=== PATIENT | female | born 1950 | race Caucasian/White ===

== ENCOUNTER 2017-09-02 19:49 | Emergency (ER) | payer OTHER ==
[~2017-09-02] VITALS: Ht 160 cm; Wt 100.7 kg
[2017-09-02 21:49] VITALS: BP 119/64
== END 2017-09-02 21:49 | disposition home or self-care (01) ==
LOC: ED 19:49
DX: S09.8XXA Other specified injuries of head, initial encounter (principal); I10 Essential (primary) hypertension; Z88.0 Allergy status to penicillin; W50.0XXA Accidental hit or strike by another person, initial encounter; Y93.89 Activity, other specified; Y99.8 Other external cause status; Y92.89 Other specified places as the place of occurrence of the external cause

== ENCOUNTER 2020-02-16 15:29 | Emergency (ER) | payer OTHER ==
[~2020-02-16] VITALS: Ht 160 cm; Wt 99.3 kg
[2020-02-16 15:38] VITALS: Ht 160 cm; Wt 99.3 kg
[2020-02-16 17:12] VITALS: BP 138/70
== END 2020-02-16 17:12 | disposition home or self-care (01) ==
LOC: ED 15:29
DX: I10 Essential (primary) hypertension (principal); M50.323 Other cervical disc degeneration at C6-C7 level; Z90.89 Acquired absence of other organs; Z90.49 Acquired absence of other specified parts of digestive tract; Z88.0 Allergy status to penicillin